=== PATIENT | female | born 1975 | race Caucasian/White ===

== ENCOUNTER 2017-07-01 07:56 | Emergency (ER) | payer SELFPAY ==
[2017-07-01 08:01] VITALS: RESP 16; O2SAT 97
--- NOTE | 2017-07-01 09:32 | EDPHY ---
H & P Time Seen by Provider: 07/01/17 09:00 HPI/ROS: CHIEF COMPLAINT: Right ear pain, shortness of breath HISTORY OF PRESENT ILLNESS: 42-year-old female presents to the emergency department complaining of intermittent severe right ear pain that began last evening. The patient states 4 months ago she had the same symptoms in her right ear which was intermittent for approximately 1 week and then resolved on its own. She did not seek medical attention for this. She states typically she developed severe onset of pain in her right ear and then shelled developed some facial numbness on the right side of her face. It was then completely resolved. She denies any reported trauma or injury. She states that she has had problems with her ear throat whole life. No hearing loss. She has experience tenderness which is chronic for her. No symptoms in the left ear. No drainage from the right ear. No fevers or chills. The patient is a chronic smoker and thinks that she has asthma. She has had tightness in her chest and shortness of breath on occasion. No cough. No other URI symptoms currently. She does not have a primary care provider. REVIEW OF SYSTEMS: Constitutional: No fever, no chills. Eyes: No double or blurry vision. ENT: Right ear pain. No sore throat. Respiratory: Shortness of breath as above now resolved. No cough. Cardiac: No chest pain. Gastrointestinal: No abdominal pain, vomiting or diarrhea. Genitourinary: No dysuria. Musculoskeletal: No neck or back pain. Skin: No rashes. Neurological: No headache. Past Medical/Surgical History: Negative Social History: Single Smoking Status: Heavy smoker Physical Exam: General Appearance: Alert, no distress. Afebrile. Initially she is sleeping lying on her left side. When she is a woken she developed severe pain was very tearful holding her right ear. Eyes: Pupils equal and round. Extraocular motions are all intact. ENT: Mouth: Mucous membranes moist. Tympanic membrane is intact. No foreign bodies. No cerumen impaction. Respiratory: No wheezing, rhonchi, or rales, lungs are clear to auscultation. Cardiovascular: Regular rate and rhythm. Gastrointestinal: Abdomen is soft and nontender, no masses, no rebound or guarding, bowel sounds normal. Neurological: Alert and oriented x 3, cranial nerves II through XII grossly intact Skin: Warm and dry, no rashes. Musculoskeletal: Nontender to palpate along the cervical, thoracic or lumbar spine. Neck is supple. Extremities: Full range of motion and no peripheral edema. Psychiatric: Patient is oriented X 3, there is no agitation. Constitutional: Initial Vital Signs Temperature (C) 36.8 C 07/01/17 07:57 Heart Rate 87 07/01/17 07:57 Respiratory Rate 16 07/01/17 07:57 Blood Pressure 81/61 L 07/01/17 07:57 O2 Sat (%) 97 07/01/17 07:57 O2 Delivery Mode Room Air Allergies/Adverse Reactions: No Known Allergies Allergy (Unverified 07/01/17 08:01) Home Medications: Medication Instructions Recorded Albuterol [Proventil Inhaler HFA 1 - 2 puffs IH Q4PRN PRN #1 mdi 07/01/17 (*)] Medical Decision Making ED Course/Re-evaluation: 42-year-old female presents with intermittent right severe pain. I spoke with ENT on-call, Dr. Pauline Reyna, who will see this patient in follow-up tomorrow or early next week. She will see this patient 1st and then determine if imaging study is indicated. We did discuss trigeminal neuralgia. The patient does have normal neurologic examination. The patient has a history of substance abuse and has been sober for 6 years. Encouraged anti-inflammatory such as ibuprofen for her pain. She will follow up with ENT as discussed. Patient does have a history of chronic smoking I did encourage her to quit smoking. She was given prescription for albuterol MDI and primary care referral. Differential Diagnosis: Including but not limited to neuralgia, trigeminal neuralgia, retained foreign body, perforated tympanic membrane, zoster, mastoiditis, bronchitis, asthma exacerbation, pneumonia - Data Points Medications Given: Discontinued Medications Ibuprofen (Motrin) 600 mg PO EDNOW ONE Stop: 07/01/17 09:47 Last Admin: 07/01/17 09:54 Dose: 600 mg Departure - Departure Disposition: Home, Routine, Self-Care Clinical Impression: Right ear pain, Bronchitis Condition: Good Instructions: Earache (ED), Acute Bronchitis (ED), How to Stop Smoking (ED) Additional Instructions: Ibuprofen 600mg every 8 hours for pain as directed. Call [phone], ENT, to arrange for a follow-up appointment to be seen tomorrow or early next week. Albuterol inhaler 2 puffs every 4 hours as needed for 1 week. Return to the emergency department if you developed worsening pain, headache, fever, or if you feel worse in any way. When you call to arrange follow-up appointment with ENT, tell them that we spoke with Dr. Pauline Reyna, and they will see you in follow-up. Referrals: Pauline Reyna MD [Medical Doctor] - 2-3 days without fail (ENT on-call) Prescriptions: Albuterol [Proventil Inhaler HFA (*)] 1 - 2 puffs IH Q4PRN PRN #1 mdi PRN Reason: P.r.n. dyspnea
[2017-07-01] MEDS ORDERED: IBUPROFEN 600 MG TAB PO ONE (09:46)
[2017-07-01 10:07] VITALS: BP 108/74; PULSE 60; TEMP 98.1
== END 2017-07-01 10:07 | disposition home or self-care (01) ==
DX: J40 Bronchitis, not specified as acute or chronic (principal); H92.01 Otalgia, right ear; F17.200 Nicotine dependence, unspecified, uncomplicated